=== PATIENT | male | born 1975 | race Caucasian/White ===

== ENCOUNTER 2017-08-03 15:30 | Emergency (ER) | payer BC ==
--- NOTE | 2017-08-03 15:37 | PDOC ---
Rapid Medical Evaluation Time Seen by Provider: 08/03/17 15:36 Medical Evaluation: Allergies Allergy/AdvReac Type Severity Reaction Status Date / Time No Known Allergies Allergy Verified 07/19/15 15:27 08/03/17 15:36 I have performed a brief in person evaluation of this patient. The patient presents with chief complaint of : headache fever for 3 days Pertinent PE findings: none , well appearing I have ordered the following: flu swab The patient will proceed to the ER for further evaluation.
[2017-08-03 15:57] VITALS: BP 135/71; PULSE 94; TEMP 99; BMI 24.6
[2017-08-03] MEDS ORDERED: ACETAMINOPHEN 500 MG TABLET (FP) PO ONE (17:18)
[2017-08-03] MEDS ORDERED: ACETAMINOPHEN 325 MG TABLET (FP) ONE (17:23)
--- NOTE | 2017-08-03 17:24 | PDOC ---
History of Present Illness - General Chief Complaint: Cold Symptoms Stated Complaint: COLD SYMPTOMS Time Seen by Provider: 08/03/17 15:36 History Source: Patient Exam Limitations: No Limitations - History of Present Illness Initial Comments: 08/03/17 17:18 42-year-old male presents to the ED with complaints of fever, headache, myalgia , cough and generalized weakness. Patient states took 400 mg of Motrin this morning with minimal effect and so decided come to the ER. Patient denies smoking history, recent sick contacts, recent travel . patient denies chest pain or shortness of breath Timing/Duration: reports: other (Monday) Severity: reports: moderate Possible Cause: Yes: no prior episodes Associated Symptoms: reports: fever/chills, headache, muscle aches, sore throat Past History - Travel Traveled outside of the country in the last 30 days: No - Past Medical History Allergies/Adverse Reactions: Allergies Allergy/AdvReac Type Severity Reaction Status Date / Time No Known Allergies Allergy Verified 08/03/17 15:55 COPD: No GI Disorders: Yes (GERD) Other medical history: DENIES. - Suicide/Smoking/Psychosocial Hx Smoking Status: No Smoking History: Never smoked Number of Cigarettes Smoked Daily: 0 Hx Alcohol Use: Yes (SOCIAL) Drug/Substance Use Hx: No Substance Use Type: None Patient Lives Alone: No Review of Systems - Review of Systems Able to Perform ROS?: Yes Constitutional: Yes: Chills, Malaise, Weakness HEENTM: Yes: Throat Pain Respiratory: Yes: Cough Cardiac (ROS): No: Symptoms Reported ABD/GI: No: Symptoms Reported : No: Symptoms Reported Musculoskeletal: Yes: Back Pain, Joint Pain, Muscle Pain, Muscle Weakness Integumentary: No: Symptoms Reported Neurological: Yes: Headache, Weakness Hematologic/Lymphatic: No: Symptoms Reported *Physical Exam - Vital Signs Last Vital Signs Temp Pulse Resp BP Pulse Ox 99 F 94 H 17 135/71 99 08/03/17 15:55 08/03/17 15:55 08/03/17 15:55 08/03/17 15:55 08/03/17 15:55 - Physical Exam General Appearance: Yes: Nourished, Appropriately Dressed. No: Apparent Distress HEENT: positive: EOMI, AISHWARYA, TMs Normal, Pharyngeal Erythema, Tonsillar Erythema. negative: Tonsillar Exudate Neck: positive: Supple Respiratory/Chest: positive: Lungs Clear, Normal Breath Sounds. negative: Respiratory Distress, Accessory Muscle Use Cardiovascular: positive: Regular Rhythm, Regular Rate. negative: Murmur Gastrointestinal/Abdominal: positive: Soft. negative: Tenderness Integumentary: positive: Normal Color, Warm, Moist Neurologic: positive: Motor Strength 5/5 (ambulatory) ED Treatment Course - ADDITIONAL ORDERS Additional order review: 08/03/17 15:38 Influenza Types A,B Antigen (AYANA) - Preliminary Nasopharyngeal Swab - Preliminary Medical Decision Making - Medical Decision Making 08/03/17 17:21 Patient with URI symptoms. Patient ordered for Tylenol secondary to symptoms. Rapid medical evaluation sent influenza which was positive for influenza A. Patient be sent home with Tamiflu since he is in the window of less than 48 hours with symptoms. *DC/Admit/Observation/Transfer Diagnosis at time of Disposition: Influenza A - Discharge Dispostion Disposition: HOME Condition at time of disposition: Good - Referrals Referrals: Charles Samano MD [Primary Care Provider] - - Patient Instructions Printed Discharge Instructions: DI for Influenza -- Adult Additional Instructions: Take Tylenol and Motrin for adequate fever and pain control. Please take Tamiflu as prescribed until completed. - Post Discharge Activity
== END 2017-08-03 17:26 | disposition home or self-care (01) ==
LOC: JER 15:30 → JERFT 15:30
DX: J09.X2 Influenza due to identified novel influenza A virus with other respiratory manifestations (principal)
CPT/HCPCS: 87804; 99281-25

== ENCOUNTER 2018-10-25 17:59 | Emergency (ER) | payer BC ==
[2018-10-25 18:13] VITALS: BP 114/61; PULSE 80; TEMP 98; BMI 24.7
[2018-10-25] MEDS ORDERED: NAPROXEN 500 MG TABLET (FP) PO ONE (20:28)
[2018-10-25] MEDS ORDERED: NAPROXEN 500 MG TABLET (FP) ONE (20:33)
--- NOTE | 2018-10-25 20:33 | PDOC ---
History of Present Illness - General Chief Complaint: Back Pain Stated Complaint: LOWER BACK PAIN Time Seen by Provider: 10/25/18 19:58 History Source: Patient Exam Limitations: No Limitations - History of Present Illness Initial Comments: 10/25/18 20:29 CHIEF COMPLAINT: Lower back pain HISTORY OF PRESENT ILLNESS: This is a 43-year-old male denies medical history presents emergency Department with left lower back pain starting this morning. Patient states she was at work and was loosening some stuck bolts. After he loosening the bolts return to bend down and when he bent over he felt a sharp sudden onset pain in his left side lower back. He rated the pain as 9/10. Pain worsens with flexion of the left hip. Pain is nonradiating. He denies any neurosensory deficits, incontinence of bladder or bowel, urinary retention, saddle anesthesia, foot drop, history of IV drug use or cancer. REVIEW OF SYSTEMS: GENERAL: Afebrile, denies any weakness RESPIRATORY: No cough, wheezing, or hemoptysis. CARDIAC: No chest pain or shortness of breath MUSCULOSKELETAL: Pain to generalized lower back. No point tenderness. Pain worse on left compared to right. SKIN : No erythema, no bruising, no deformity. GI/: Denies any abdominal pain, no urinary difficulty, incontinence or urinary retention. RECTAL: Denies any difficulty this A.m. NEUROLOGICAL: Denies any numbness or tingling. No neurosensory deficits. PHYSICAL EXAM: GENERAL: The patient is awake, alert, and fully oriented, in no acute distress. RESPIRATORY: Lungs clear bilaterally, no rhonchi wheezes or crackles CARDIAC: S1-S2 audible, no murmur rub or gallop MUSCULOSKELETAL: Pain to generalized lower back, nonradiating, no tingling or sensory deficit. Less than 2 second cap refill, +2 pedal pulses. No spinal point tenderness. Normal reflexive and no deficits to sensation or strength. GI/: Abdomen soft, nontender, nondistended. No rebound tenderness. No masses palpable.: RECTAL: Deferred patient with no neurological findings SKIN: Warm, Dry, normal turgor, no erythema, no edema no bruising. Past History - Past Medical History Allergies/Adverse Reactions: Allergies Allergy/AdvReac Type Severity Reaction Status Date / Time No Known Allergies Allergy Verified 08/03/17 15:55 Home Medications: Ambulatory Orders NK [No Known Home Medication] 10/25/18 COPD: No GI Disorders: Yes (GERD) - Immunization History Immunization Up to Date: No - Suicide/Smoking/Psychosocial Hx Smoking Status: No Smoking History: Never smoked Have you smoked in the past 12 months: No Number of Cigarettes Smoked Daily: 0 Information on smoking cessation initiated: No Hx Alcohol Use: Yes Drug/Substance Use Hx: No Substance Use Type: None *Physical Exam - Vital Signs Last Vital Signs Temp Pulse Resp BP Pulse Ox 98.0 F 80 18 114/61 100 10/25/18 18:10 10/25/18 18:10 10/25/18 18:10 10/25/18 18:10 10/25/18 18:10 Medical Decision Making - Medical Decision Making 10/25/18 20:31 A/P: 43-year-old male with left lower back pain starting today No palpable muscle spasms No neurosensory deficits Able to her with steady gait Naprosyn 500 mg orally now Discharge home *DC/Admit/Observation/Transfer Diagnosis at time of Disposition: Back pain Qualifiers: Back pain location: low back pain Chronicity: acute Back pain laterality: left Sciatica presence: without sciatica Qualified Code(s): M54.5 - Low back pain - Discharge Dispostion Disposition: HOME Condition at time of disposition: Stable - Referrals Referrals: Charles Samano MD [Primary Care Provider] - - Patient Instructions Additional Instructions: Rest. Take Tylenol or Aleve as needed for pain. Follow manufacturers instructions for appropriate dosage. Warm moist heat applied to your back may help alleviate pain. Return to emergency department for numbness or tingling to the feet, worsening pain, or any other concerns. Thank you very much for choosing us to provide your emergent healthcare needs. - Post Discharge Activity Forms/Work/School Notes: Back to Work
== END 2018-10-25 20:38 | disposition home or self-care (01) ==
LOC: JERFT 17:59
DX: M54.5 Low back pain (principal); X50.0XXA Overexertion from strenuous movement or load, initial encounter; Y93.89 Activity, other specified; Y92.69 Other specified industrial and construction area as the place of occurrence of the external cause; Y99.0 Civilian activity done for income or pay
CPT/HCPCS: 99281-25

== ENCOUNTER 2020-02-12 18:01 | Emergency (ER) | payer BC, OTHER ==
[2020-02-12] MEDS ORDERED: IBUPROFEN 600 MG TABLET (FP) PO ONE (18:05)
--- NOTE | 2020-02-12 18:07 | PDOC ---
History of Present Illness - General Chief Complaint: Injury Stated Complaint: RT FOOT PAIN X1 WEEK Time Seen by Provider: 02/12/20 18:05 History Source: Patient Exam Limitations: No Limitations - History of Present Illness Initial Comments: Nannette is a 44 yo M who denies having any pmh who presents to the [facility] with 5 days of right foot pain. Patient states he has an appointment with his television director on Monday in 2 days from now but came in bc the pain was particularly bothering him today. He did not try and take any medications at home for his discomfort. He states the pain is worse when he puts a significant amount of pressure and weight on the foot. At rest, he has no foot pain but it is nagging him and njow making it annoying for him to walk. Denies fevers, chills, infections, radiation of his foot pain, hx of gout or arthritis PCP: Dr. Butts Art History Instructor: Dr. Alonzo Hayes PSH: None reported Allergies: NKA, NKDA Social Hx: Denies smoking, drinking, or other substance abuse Past History - Medical History Allergies/Adverse Reactions: Allergies Allergy/AdvReac Type Severity Reaction Status Date / Time No Known Allergies Allergy Verified 02/12/20 18:02 Home Medications: Ambulatory Orders NK [No Known Home Medication] 10/25/18 COPD: No GI Disorders: Yes (GERD) - Immunization History Immunization Up to Date: No - Psycho-Social/Smoking History Smoking Status: No Smoking History: Never smoked Have you smoked in the past 12 months: No Number of Cigarettes Smoked Daily: 0 Review of Systems - Review of Systems Able to Perform ROS?: Yes Comments:: CONSTITUTIONAL: Absent: fever, no chills, no fatigue EYES: Absent: visual changes ENT: Absent: ear pain, no sore throat CARDIOVASCULAR: Absent: chest pain, no palpitations RESPIRATORY: Absent: cough, no SOB GI: Absent: abdominal pain, no nausea, no vomiting, no constipation, no diarrhea GENITOURINARY: Absent: dysuria, no frequency, no hematuria MUSKULOSKELETAL: Present: Arthralgia Absent: back pain, no myalgia SKIN: Absent: rash NEURO: Absent: headache *Physical Exam - Physical Exam RIGHT FOOT: Appears normal externally. 2+ DP and PT pulses. 5/5 sensation and strength in the entire foot compared to left foot. There is mild reproducible pain on the dorsal aspect of the foot just proximal to the 2nd TMT joint. GENERAL: Well-appearing, well-nourished. No apparent distress. HEENT: Normocephalic, atraumatic. PERRL, EOM intact. CARDIOVASCULAR: Normal S1, S2. Regular rate and rhythm. PULMONARY: No evidence of respiratory distress. Lungs clear to auscultation bilaterally. No wheezing, rales or rhonchi. ABDOMEN: Soft, non-distended, non-tender. EXTREMITIES: Normal ROM in all four extremities. No gross deformities. SKIN: Warm, dry. No rash NEUROLOGICAL: No focal neurological deficits. ED Treatment Course - RADIOLOGY Radiology Studies Ordered: Category Date Time Status FOOT-RIGHT [RAD] Stat Radiology 02/12/20 18:05 Ordered Medical Decision Making - Medical Decision Making Anyely is a 44 yo M who denies having any pmh who presents to the [facility] with 5 days of right foot pain. Patient states he has an appointment with his television director on Monday in 2 days from now but came in bc the pain was particularly bothering him today. He did not try and take any medications at home for his discomfort. He states the pain is worse when he puts a significant amount of pressure and weight on the foot. At rest, he has no foot pain but it is nagging him and njow making it annoying for him to walk. Denies fevers, chills, infections, radiation of his foot pain, hx of gout or arthritis Vital Signs Temp Pulse Resp BP Pulse Ox 98.1 F 65 20 118/84 99 02/12/20 18:02 02/12/20 18:02 02/12/20 18:02 02/12/20 18:02 02/12/20 18:02 DDx IBNLT: Stress fracture, foot sprain, strain, ligamentous injury Plan: XR, analgesia, DC so patient can goto his television director appointment on Monday in 2 days from now XR: No acute fx Re-assessment: Patient endorses feeling much better after ibuprofen and requests to be discharged The patient appears clinically sober, is A&O x4, and appears to be capable and have capacity to make reasonable decisions. The patient states they are currently in the emergency department, knows who the president is, states the correct time, correct day, and correct month. The patient is ambulatory in ER and has walked around the nursing station multiple times with a straight gait, and is not ataxic. Tolerating PO well, ate a sandwich and drank juice. Denies having any SI or HI. Patient states will not be driving home. I discussed the physical exam findings, ancillary test results and final diagnoses with the patient. I answered all of the patient's questions. The patient was satisfied with the care received and felt comfortable with the discharge plan and treatment plan. The patient will call their primary care physician within 24 hours to arrange follow-up and will return to the Emergency Department with any new, persistent or worsening symptoms. Dispo: Home with podiatry FU on Monday, return precautions discussed Please note, this clinical encounter is taking place during a federal and state health care emergency attributable to the novel Schrader Virus pandemic. The [employer] [place] of the Department of Health and Human Services has declared, pursuant to the Public Health Service Act 319F-3 (42 U.S.C. 247d-6d), that a covered persons activities related to medical countermeasures against COVID-19 will be immune from liability under Federal and State law. Discharge - Discharge Information Problems reviewed: Yes Clinical Impression/Diagnosis: Foot pain, right Condition: Improved Disposition: HOME - Admission No - Follow up/Referral Referrals: Alonzo Hayes DPM [Non Staff, Medical] - - Patient Discharge Instructions Patient Printed Discharge Instructions: DI for Foot Pain, DI for Metatarsalgia Additional Instructions: You came into the ER with foot pain. We did an x-ray which showed no acute fracture. Make sure to follow up with your television director on Monday. Take ibuprofen and tylenol as needed for pain control. You must return to the Emergency Department with any new complaints, if your symptoms persist and do not improve or if you develop any other new or worsening concerns. As discussed, please call to follow up with your Primary Care physician in 1-2 days to discuss what happened to you in the emergency room, and make sure you are being looked after and taken care of. Your emergency room visit is not complete without this follow up appointment. Please read the attached handouts for further information about your ER visit and what you should do moving forward. Thank you for coming to the [facility]. We hope you feel better soon! Print Language: [place] ISLAND[place] - Post Discharge Activity
--- NOTE | 2020-02-12 18:15 | PDOC ---
Attending Attestation - Resident Resident Name: Dallin Mart - ED Attending Attestation I have performed the following: I have examined & evaluated the patient, The case was reviewed & discussed with the resident, I agree w/resident's findings & plan, Exceptions are as noted - HPI HPI: 02/12/20 18:10 44 yo M p/w R foot pain, atraumatic, x1.5 weeks. Denies any numbness or weakness. Is able to ambulate but reports pain near the base of his 2nd R toe when he walks or puts pressure on it. Denies previous injuries to the foot. Pt has an appt with a section supervisor in 2 days. No other complaints. - Physicial Exam PE: 02/12/20 18:12 General: well appearing Extremities: warm and well perfused, no LE edema, +DP pulses, sensation intact to light touch, dorsiflexion/plantarflexion 5/5 b/l, no midfoot tenderness, no gross deformities, +mild ttp at base of 2nd R digit near mtp joint - Medical Decision Making 02/12/20 18:13 44 yo M with R foot pain, low suspicion for fx, possible 2/2 flip flops or contusion/sprain. No erythema or increased warmth to suggest cellulitis or infectious process. Plan: -xray R foot -motrin -reassess, if no fx on xray will d/c with return precautions and recommend pt to f/u with podiatry appt at previously scheduled appt This clinical encounter is taking place during a federal and state health care emergency attributable to the novel Schrader Virus pandemic. The [place] of the Department of Health and Human Services has declared, pursuant to the Public Health Service Act 319F-3 (42 U.S.C. 247d-6d), that a covered persons activities related to medical countermeasures against COVID-19 will be immune from liability under Federal and State law. Discharge - Discharge Information Problems reviewed: Yes Clinical Impression/Diagnosis: Foot pain, right Condition: Improved Disposition: HOME - Follow up/Referral Referrals: Alonzo Hayes DPM [Non Staff, Medical] - - Patient Discharge Instructions Patient Printed Discharge Instructions: DI for Metatarsalgia, DI for Foot Pain Additional Instructions: You came into the ER with foot pain. We did an x-ray which showed no acute fracture. Make sure to follow up with your section supervisor on Monday. Take ibuprofen and tylenol as needed for pain control. You must return to the Emergency Department with any new complaints, if your symptoms persist and do not improve or if you develop any other new or worsening concerns. As discussed, please call to follow up with your Primary Care physician in 1-2 days to discuss what happened to you in the emergency room, and make sure you are being looked after and taken care of. Your emergency room visit is not complete without this follow up appointment. Please read the attached handouts for further information about your ER visit and what you should do moving forward. Thank you for coming to the [facility]. We hope you feel better soon! Print Language: IRISH - Post Discharge Activity
[2020-02-12 18:25] VITALS: BP 118/84; PULSE 65; TEMP 98.1; BMI 24.3
[2020-02-12] MEDS ORDERED: IBUPROFEN 400 MG TABLET (FP) PO ONE (18:34)
== END 2020-02-12 18:50 | disposition home or self-care (01) ==
LOC: FER 18:01
DX: M79.671 Pain in right foot (principal)
CPT/HCPCS: 73630-TC-RT-FY; 99283-25

== ENCOUNTER 2020-07-15 13:09 | Emergency (ER) | payer BC ==
[2020-07-15 13:55] VITALS: BP 136/37; PULSE 91; TEMP 98.9; BMI 24.3
[2020-07-15 15:38] LABS: PH,URINE 5.5 (5.0-8.0); URINE APPEARANCE CLEAR; URINE BILIRUBIN NEGATIVE (NEGATIVE); URINE COLOR YELLOW; URINE GLUCOSE (UA) NEGATIVE (NEGATIVE); URINE KETONE NEGATIVE (NEGATIVE); URINE LEUK ESTERASE NEGATIVE (NEGATIVE); URINE NITRITE NEGATIVE (NEGATIVE); URINE PROTEIN NEGATIVE (NEGATIVE); URINE UROBILINOGEN 0.2 mg/dL (0.2-1.0)
== END 2020-07-15 15:52 | disposition home or self-care (01) ==
LOC: JER 13:09
DX: R39.15 Urgency of urination (principal); Z03.818 Encounter for observation for suspected exposure to other biological agents ruled out
CPT/HCPCS: 36415; 81003; 87086; 87491; 87591; 99283-25; C9803; U0003

== ENCOUNTER 2021-11-09 23:02 | Emergency (ER) | payer BC ==
[2021-11-09 23:10] VITALS: BP 116/78; PULSE 90; TEMP 98.3; BMI 23.7
[2021-11-09] MEDS ORDERED: ACETAMINOPHEN 325 MG TABLET (FP) PO ONE (23:56)
[2021-11-09] MEDS ORDERED: LIDOCAINE 5% TOPICAL PATCH TP ONE (23:56)
[2021-11-10] MEDS ORDERED: ACETAMINOPHEN 325 MG TABLET (FP) ONE (00:34)
[2021-11-10] MEDS ORDERED: LIDOCAINE 5% TOPICAL PATCH ONE (00:34)
[2021-11-10] MEDS ORDERED: LIDOCAINE PATCH REMOVAL MC ONE (11:00)
[2021-11-11 13:07] LABS: SARS-CoV-2 NAA Not Detected (Not Detected)
== END 2021-11-10 01:25 | disposition home or self-care (01) ==
LOC: JER 23:02
DX: R53.81 Other malaise (principal); Z20.822 Contact with and (suspected) exposure to COVID-19
CPT/HCPCS: 71046-TC-FY; 87804; 93005; 93010; 99285-25; C9803-CS; U0003; U0005